=== PATIENT | female | born 1950 | race Two or more races ===

== ENCOUNTER 2019-11-24 06:31 | Day surgery (SDC) | payer BC, MEDICAID ==
[~2019-11-24] VITALS: Ht 172.7 cm; Wt 87.5 kg
[2019-11-24] MEDS ORDERED: LIDOcaine 1% 30ml preserv. free vial IJ ONE (07:00)
[2019-11-24 08:00] VITALS: BP 147/67
[2019-11-24 08:45] VITALS: BP 166/88
[2019-11-24 09:10] VITALS: BP 180/97
[2019-11-24 09:39] VITALS: BP 149/71
[2019-11-24] MEDS ORDERED: ASCO500C15 PO (10:07)
[2019-11-24] MEDS ORDERED: MULT-1085 PO (10:07)
[2019-11-24] MEDS ORDERED: AZEL6DRO5 EACHEYE (10:07)
[2019-11-24] MEDS ORDERED: SELE200T25 PO (10:07)
[2019-11-24] MEDS ORDERED: LISI10TA PO (10:07)
== END 2019-11-24 10:00 | disposition home or self-care (01) ==
LOC: SSTAY O 06:31
PROVIDERS: ATTEND Radiology Diagnostic Radiology
DX: K11.8 Other diseases of salivary glands (principal); R59.0 Localized enlarged lymph nodes; Z87.891 Personal history of nicotine dependence; I10 Essential (primary) hypertension
CPT/HCPCS: 10005; 38505; 76942